=== PATIENT | female | born 1980 | race Caucasian/White ===

== ENCOUNTER 2018-11-21 02:40 | Emergency (ER) | payer MEDICAID, OTHER ==
[~2018-11-21] VITALS: Ht 156.2 cm; Wt 78.0 kg
[2018-11-21] MEDS ORDERED: BUDE10.2 IH (03:11)
[2018-11-21] MEDS ORDERED: PRD50T PO (03:11)
[2018-11-21] MEDS ORDERED: AZIT250T12 PO (03:11)
[2018-11-21] MEDS ORDERED: HYDR10SO4 PO (03:11)
[2018-11-21] MEDS ORDERED: HYDROcodone/APAP 7.5 MG/325 MG (LORTAB, LORCET PLUS) TABLET PO ONE (03:15)
[2018-11-21] MEDS ORDERED: RT-ALBUTEROL/IPRATROPIUM 3 ML (DUONEB) VIAL INH ONE (03:15)
[2018-11-21] MEDS ORDERED: AZITHROMYCIN 250 MG TAB (ZITHROMAX) PO ONE (03:15)
[2018-11-21] MEDS ORDERED: predniSONE 20 MG TAB PO ONE (03:15)
[2018-11-21] MEDS ORDERED: METFORMIN HYDROCHLORIDE 500 MG (03:24)
[2018-11-21] MEDS ORDERED: ROSUVASTATIN CALCIUM 10 MG TAB (03:24)
[2018-11-21] MEDS ORDERED: LEVOTHYROXINE SODIUM 100 MCG (03:24)
[2018-11-21] MEDS ORDERED: GABAPENTIN 100 MG (03:24)
[2018-11-21] MEDS ORDERED: CETIRIZINE HCL 10 MG (03:24)
[2018-11-21] MEDS ORDERED: SYMBICORT AER 160-4.5 (03:24)
[2018-11-21] MEDS ORDERED: FAMOTIDINE 20 MG (03:24)
[2018-11-21] MEDS ORDERED: IBUPROFEN 600 MG (03:24)
[2018-11-21] MEDS ORDERED: PREMPRO (03:24)
[2018-11-21] MEDS ORDERED: PROAIR HFA 108 MCG/ACT AERS (03:24)
[2018-11-21 03:35] VITALS: BP 115/71
--- NOTE | 2018-11-21 04:09 | ED General ---
General Chief Complaint: Cough/Cold/Flu Symptoms Stated Complaint: COUGH Nursing Triage Note: cough for the past 3 days/nasal congestion Nursing Sepsis Screen: No Definite Risk History of Present Illness Date Seen by Provider: Nov 21, 2018 Time Seen by Provider: 03:00 Initial Comments Patient is a 38-year-old female with a history of asthma and tobacco use who presents to the emergency department complaining of cough and sore throat and loss of voice. The patient has been ill over the last 3-4 days. She has had chills but no documented fever. She has been using her albuterol inhaler at home. She states that she is almost out of her Symbicort. She also complains of sore throat. She has upper airway and nasal congestion. She lost her voice about 2 days earlier. No acute shortness of breath. Allergies and Home Medications Allergies Coded Allergies: No Known Drug Allergies (Unverified , 11/21/18) Home Medications Azithromycin 250 Mg Tablet, 250 MG PO DAILY Prescribed by: BETY PERDOMO on 11/21/18 031 Budesonide/Formoterol Fumarate 10.2 Gm Hfa.aer.ad, 2 PUFF IH BID Prescribed by: BETY PERDOMO on 11/21/18 031 Hydrocodone/Acetaminophen 10 Ml Solution, 5 ML PO Q4H PRN for COUGH Prescribed by: BETY PERDOMO on 11/21/18 031 Prednisone 50 Mg Tab, 50 MG PO DAILY Prescribed by: BETY PERDOMO on 11/21/18310 Patient Home Medication List Home Medication List Reviewed: Yes Review of Systems Review of Systems Constitutional: see HPI EENTM: see HPI Respiratory: cough, wheezing Cardiovascular: no symptoms reported Gastrointestinal: no symptoms reported Musculoskeletal: no symptoms reported Skin: no symptoms reported Psychiatric/Neurological: No Symptoms Reported Hematologic/Lymphatic: No Symptoms Reported Past Ufossnx-Pzqsjp-Mumvzy Hx Patient Social History Alcohol Use: Denies Use Recreational Drug Use: No Smoking Status: Current Everyday Smoker Type Used: Cigarettes 2nd Hand Smoke Exposure: Yes Recent Foreign Travel: No Contact w/Someone Who Travel: No Recent Infectious Disease Expo: No Recent Hopitalizations: No Physical Abuse: No Sexual Abuse: No Mistreated: No Fear: No Seasonal Allergies Seasonal Allergies: No Past Medical History Surgeries: Yes Abdominal, Eye Surgery, Gallbladder, Joint Replacement, Tubal Ligation Respiratory: Yes COPD Cardiac: No Neurological: No Genitourinary: No Gastrointestinal: No Musculoskeletal: No Endocrine: Yes Hypothyroidsim HEENT: No Cancer: No Psychosocial: No Integumentary: No Blood Disorders: No Physical Exam Vital Signs Vital Signs - First Documented 11/21/18 03:00 Temp 98.4 Pulse 99 Resp 16 B/P (MAP) 110/62 (78) Pulse Ox 96 O2 Delivery Room Air Capillary Refill : Less Than 3 Seconds Height, Weight, BMI Height: 5'1.50" Weight: 172lbs. oz. 78.342762hr; BMI Method:Stated General Appearance: No Apparent Distress, WD/WN Eyes: Bilateral Eye Normal Inspection, Bilateral Eye PERRL, Bilateral Eye EOMI HEENT: PERRL/EOMI, TMs Normal, Other (posterior oral pharynx is injected and there are exudates present laterally) Neck: Full Range of Motion, Normal Inspection, Non Tender, Supple Respiratory: Wheezing, Other (few scattered wheezes bilaterally but good air movement and no increased work of breathing) Cardiovascular: No JVD, No Murmur Rectal: Normal Exam Back: Normal Inspection Extremity: Normal Capillary Refill Neurologic/Psychiatric: Alert, Oriented x3 Skin: Normal Color, Warm/Dry Progress/Results/Core Measures Suspected Sepsis Recent Fever Within 48 Hours: No Infection Criteria Present: None New/Unexplained Altered Menta: No Sepsis Screen: No Definite Risk SIRS Temperature:98.4 Pulse: 102 Respiratory Rate: 16 Blood Pressure 115 /71 Mean: 86 Results/Orders My Orders Orders - BETY PERDOMO DO Albuterol/Ipra Inhalation Soln (Duoneb I (11/21/18 03:15) Svn Small Volume Nebulizer (11/21/18 03:07) Prednisone Tablet (Deltasone Tablet) (11/21/18 03:15) Azithromycin Tablet (Zithromax Tablet) (11/21/18 03:15) Hydrocodone/Apap 7.5/325 Tab (Lortab 7. (11/21/18 03:15) Medications Given in ED Current Medications Medications Dose Ordered Sig/Trell Route Start Time Stop Time Status Last Admin Dose Admin Acetaminophen/ Hydrocodone Bitart 1 ea ONCE ONCE PO 11/21/18 03:15 11/21/18 03:16 DC 11/21/18 03:19 1 EA Albuterol/ Ipratropium 3 ml ONCE ONCE INH 11/21/18 03:15 11/21/18 03:16 DC 11/21/18 03:18 3 ML Azithromycin 500 mg ONCE ONCE PO 11/21/18 03:15 11/21/18 03:16 DC 11/21/18 03:19 500 MG Prednisone 50 mg ONCE ONCE PO 11/21/18 03:15 11/21/18 03:16 DC 11/21/18 03:19 50 MG Vital Signs/I&O 11/21/18 11/21/18 11/21/18 03:00 03:10 03:35 Temp 98.4 Pulse 99 102 Resp 16 16 B/P (MAP) 110/62 (78) 115/71 (86) Pulse Ox 96 98 O2 Delivery Room Air Room Air Room Air Capillary Refill : Less Than 3 Seconds Blood Pressure Mean: 86 Progress Note : Time: 03:30 Progress Note Patient is evaluated in the emergency department. Despite the fact that she has viral symptoms, she has exudates present bilaterally in the posterior oropharynx. These can also be caused by some viruses such as CMV and mono. The patient has a few scattered wheezes but good air movement overall. In the ER, she was started on azithromycin and given the first dose. She was also given a dose of prednisone and a DuoNeb treatment. At the time of discharge, her lungs were entirely clear. She was given a dose of [place] for pain and cough. Patient was discharged home on the same medications. She was also given a refill of her normal Symbicort inhaler. Patient was advised to follow up with her primary care doctor or come back to the ER for any new or worsening symptoms. Departure Impression Primary Impression: Cough Additional Impression: Upper respiratory infection Disposition: 01 HOME, SELF-CARE Condition: Improved Departure-Patient Inst. Referrals: NO,LOCAL PHYSICIAN (PCP) Primary Care Physician Patient Instructions: Acute Bronchitis, Adult (DC) Scripts Hydrocodone/Acetaminophen (Hydrocodone-Acetamin 5-217/10 ML) 10 Ml Solution 5 ML PO Q4H PRN for COUGH, #120 ML Prov: BETY PERDOMO DO 11/21/18 Budesonide/Formoterol Fumarate (Symbicort 160-4.5 Mcg Inhaler) 10.2 Gm Hfa.aer.ad 2 PUFF IH BID for 30 Days, #1 INHALER Prov: BETY PERDOMO DO 11/21/18 Prednisone (Prednisone) 50 Mg Tab 50 MG PO DAILY for 4 Days, #4 TAB Prov: BETY PERDOMO DO 11/21/18 Azithromycin (Azithromycin) 250 Mg Tablet 250 MG PO DAILY, #4 TAB 0 Refills Prov: BETY PERDOMO DO 11/21/18 BETY PERDOMO DO Nov 21, 2018 04:09
--- OUTSIDE RECORDS SUMMARY | 2018-11-21 15:37 | XMS REPORT | Referral Summary ---
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 Name Role Phone Ricardo Denson PCP Encounter VC Date(s): 03/02/15 - 03/02/15 [facility] [address] [place], [place] [address] Discharge Diagnosis: Myalgia Final: Myalgia and myositis, unspecified Discharge Disposition: 01-Home or Self Care Attending Physician: Rakesh Ruiz MD Admitting Physician: Rakesh Ruiz MD Vital Signs Most recent to 1 oldest [Reference Range]: Temperature Oral 36.6 degC [35.8-37.3 degC] (03/02/15 6:40 PM) Peripheral Pulse 96 bpm Rate [60-100 bpm] (03/02/15 7:56 PM) Respiratory Rate 18 br/min [14-20 br/min] (03/02/15 7:56 PM) Blood Pressure 138/74 mmHg [90-140/60-90 mmHg] (03/02/15 7:56 PM) SpO2 95 % (03/02/15 7:56 PM) Problem List Condition Effective Dates Status Health Status Informant Asthma(Confirmed) Active patient Diabetes(Confirmed) Active patient Thyroid Active patient disease(Confirmed) Acid Active reflux(Confirmed) High Active patient cholesterol(Confirme d) Tobacco Active patient user(Confirmed) Allergies, Adverse Reactions, Alerts No Known Medication Allergies Medications albuterol 0 Refill(s) Start Date: 03/02/15 Status: Ordered levothyroxine Daily, 0 Refill(s) Start Date: 03/02/15 Status: Ordered Symbicort Inhalation, BID, 0 Refill(s) Start Date: 03/02/15 Status: Ordered ZyrTEC Daily, 0 Refill(s) Start Date: 03/02/15 Status: Ordered Results No data available for this section Immunizations No data available for this section Procedures Procedure Date Related Diagnosis Body Site Cholecystectomy DNCB - Dinitrochlorobenzene contact sensitivity test Hernia repair Tubal ligation Social History Social History Type Response Smoking Status Current every day smoker; Type: Cigarettes; Tobacco use per day: Pack Assessment and Plan No data available for this section
== END 2018-11-21 03:34 | disposition home or self-care (01) ==
LOC: ER FS 02:44
DX: J06.9 Acute upper respiratory infection, unspecified (principal); J44.9 Chronic obstructive pulmonary disease, unspecified; E03.9 Hypothyroidism, unspecified; F17.210 Nicotine dependence, cigarettes, uncomplicated; Z79.52 Long term (current) use of systemic steroids; Z79.51 Long term (current) use of inhaled steroids; Z98.51 Tubal ligation status; Z98.890 Other specified postprocedural states
CPT/HCPCS: 99283